=== PATIENT | female | born 1970 | race African-American/Black ===

== ENCOUNTER 2018-03-15 20:34 | Emergency (ER) | payer BC, OTHER ==
[2018-03-15 20:40] VITALS: BP 160/71; PULSE 89; TEMP 100.2; BMI 31.2
[2018-03-15] MEDS ORDERED: IBUPROFEN 600 MG TABLET (FP) PO ONE ×2 (20:41→21:17)
--- NOTE | 2018-03-15 20:55 | PDOC ---
Rapid Medical Evaluation Chief Complaint: Sore Throat Time Seen by Provider: 03/15/18 20:40 Medical Evaluation: Allergies Allergy/AdvReac Type Severity Reaction Status Date / Time No Known Drug Allergies Allergy Verified 02/06/13 22:18 morphine AdvReac HYPER, Verified 02/06/13 17:16 ANXIETY 03/15/18 20:41 c/o sore throat and ear pain x2 days. + low grade temps at home PE: patient alert ox3. + pharyngeal eyrthema A: sore throat P: rapid strep patient to the ER for further management of care. Discharge Disposition - Diagnosis Sore throat - Referrals - Patient Instructions - Post Discharge Activity
--- NOTE | 2018-03-15 21:30 | PDOC ---
History of Present Illness - General Chief Complaint: Sore Throat Stated Complaint: COLD SYMPTOMS Time Seen by Provider: 03/15/18 20:40 - History of Present Illness Initial Comments: 03/15/18 21:27 47-year-old female with cough fever and body aches 3 days she has no comorbidities Past History - Past Medical History Allergies/Adverse Reactions: Allergies Allergy/AdvReac Type Severity Reaction Status Date / Time amoxicillin Allergy Verified 03/15/18 20:41 morphine AdvReac HYPER, Verified 03/15/18 20:41 ANXIETY Home Medications: Ambulatory Orders No Home Medications 0 dose .ROUTE UTDICT 01/11/12 COPD: No - Surgical History Abdominal Surgery: Yes (TUMMY TUCK) - Reproductive History Tubal Ligation: Yes - Suicide/Smoking/Psychosocial Hx Smoking Status: No Smoking History: Never smoked Number of Cigarettes Smoked Daily: 0 Hx Alcohol Use: No Drug/Substance Use Hx: No Substance Use Type: None Hx Substance Use Treatment: No Review of Systems - Review of Systems Constitutional: Yes: Chills, Fever, Malaise Respiratory: Yes: Cough *Physical Exam - Vital Signs Last Vital Signs Temp Pulse Resp BP Pulse Ox 100.2 F H 89 18 160/71 98 03/15/18 20:36 03/15/18 20:36 03/15/18 20:36 03/15/18 20:36 03/15/18 20:36 - Physical Exam Comments: 03/15/18 21:28 HEAD: NC/AT EYES: Conjuntiva clear Ears: Canals and TM's normal NOSE: No d/c THROAT: Moist mucous membrances, oral pharanx clear, uvula midline NECK: Supple without adenopathy CARDIAC: S1 S2 LUNGS: CTA Full and Equal breath sounds ABDOMEN: Soft NT ND MS: Full ROM in all joints without edema NEUROLOGIC: No gross sensory or motor deficits, NVID SKIN: Normal color and temperature no lesions or rashes ED Treatment Course - Medications Given in the ED: ED Medications Discontinued Medications Generic Name Dose Route Start Last Admin Trade Name Freq PRN Reason Stop Dose Admin Ibuprofen 600 mg 03/15/18 20:41 03/15/18 21:18 Motrin - PO 03/15/18 20:42 600 mg ONCE ONE Administration Medical Decision Making - Medical Decision Making 03/15/18 21:28 May be influenza however patient is out of the range for Tamiflu it's been over 72 hours at this point Tylenol and Motrin for symptomatically relief encourage fluid intake *DC/Admit/Observation/Transfer Diagnosis at time of Disposition: Sore throat, Upper respiratory infection - Discharge Dispostion Disposition: HOME Condition at time of disposition: Stable Decision to Admit order: No - Referrals Referrals: Arturo Price [Non Staff, Medical] - - Patient Instructions Printed Discharge Instructions: DI for Viral Upper Respiratory Infection -- Adult Additional Instructions: Return to the emergency room should symptoms worsen or go unresolved. Please take Tylenol and Motrin as directed for pain and fever. Follow-up with your primary care physician one to 2 days for further evaluation and treatment options. Warm saltwater gargles will help with your sore throat if strep test today was negative and a culture was sent should you require antibiotics or any additional treatment will call you - Post Discharge Activity
== END 2018-03-15 21:31 | disposition home or self-care (01) ==
LOC: JERFT 20:34
DX: J02.9 Acute pharyngitis, unspecified (principal); J06.9 Acute upper respiratory infection, unspecified
CPT/HCPCS: 87070; 99281-25